=== PATIENT | male | born 1950 | race Two or more races ===

== ENCOUNTER 2024-03-24 11:41 | Emergency (ER) | payer OTHER ==
[~2024-03-24] VITALS: Ht 188 cm; Wt 109.0 kg
[2024-03-24 12:06] LABS: Basophils # (auto) 0.1 10 ^3/uL (0-0.2); Basophils % (auto) 0.9 % (0.0-2.0); Eosinophils # (auto) 0.2 10 ^3/uL (0-0.8); Eosinophils % (auto) 2.1 % (0.0-7.0); Hematocrit 44.1 % (41.0-53.0); Lymphocytes # (auto) 1.9 10 ^3/uL (0.4-5.4); Lymphocytes % (auto) 21.5 % (10.0-50.0); Mean Corpuscular Hemoglobin 30.6 pg (28.0-32.0); Mean Corpuscular Volume 89.9 fL (80.0-100.0); Monocytes # (auto) 0.7 10 ^3/uL (0-1.3); Monocytes % (auto) 7.9 % (0.0-12.0); Neutrophils # (auto) 5.8 10 ^3/uL (1.6-8.6); Neutrophils % (auto) 67.6 % (37.0-80.0); Nucleated Red Blood Cells % 0.2 %; Red Blood Cells 4.91 10^6/uL (4.5-5.90); White Blood Cell 8.6 10^3/uL (4.4-10.8)
[2024-03-24 12:12] VITALS: PULSE 51; RESP 19; O2SAT 95
[2024-03-24] MEDS: ASPirin 81 mg TAB PO ONE (12:12)
[2024-03-24 12:25] LABS: Alanine Aminotransferase 19 U/L (7-40); Albumin 4.3 g/dL (3.2-4.8); Alkaline Phosphatase 105 U/L (46-116); Anion Gap 8 (5-15); Aspartate Aminotransferase 10 U/L (13-40); Bilirubin, Total 0.8 mg/dL (0.2-1.0); Blood Urea Nitrogen 12 mg/dL (9-23); Calcium 9.8 mg/dL (8.7-10.4); Carbon Dioxide 26 mmol/L (20-30); Chloride 107 mmol/L (98-107); Glucose 125 mg/dL (74-106); Potassium 4.2 mmol/L (3.5-5.1); Sodium 141 mmol/L (136-145); Total Protein 6.4 g/dL (5.7-8.2)
[2024-03-24 15:27] LABS: Urine Bacteria None Seen /hpf (None Seen)
[2024-03-24 15:40] LABS: Urine Blood Negative /uL (Negative); Urine Clarity Clear (Clear); Urine Color Light-Yellow (Yellow); Urine Protein, UAD Negative (Negative); Urine Specific Gravity 1.016 (1.001-1.035); Urine Urobilinogen Normal (Negative); Urine WBC 1 /hpf (0 - 3)
[2024-03-24] MEDS ORDERED: MAGNESIUM SULFATE 1GM/100ML 100 ML IV SCH (16:30)
[2024-03-24 16:40] VITALS: BP 116/70; PULSE 81; RESP 19; TEMP 98; O2SAT 98
== END 2024-03-24 17:39 | disposition home or self-care (01) ==
LOC: ER 11:41
DX: R07.89 Other chest pain (principal); E11.9 Type 2 diabetes mellitus without complications; E78.5 Hyperlipidemia, unspecified; I10 Essential (primary) hypertension; F12.90 Cannabis use, unspecified, uncomplicated; Z90.89 Acquired absence of other organs
CPT/HCPCS: 36415; 71046; 80053; 81001; 84484; 85025; 93005

== ENCOUNTER 2024-04-07 09:53 | Day surgery (SDC) | payer OTHER ==
[~2024-04-07] VITALS: Ht 188 cm; Wt 109.0 kg
[~2024-04-07 09:53] MED LIST: ATOR40TA52 PO; FAMO20TA30 PO; GLIP5TAB21 PO; LISI-706 PO; METF-370 PO; METO25TA93 PO
[2024-04-07] MEDS ORDERED: LIDOCAINE 2%HCL (LOCAL ANESTH.) INJ 20ML MDV ONE (10:41)
[2024-04-07] MEDS ORDERED: fentaNYL CITRATE 100 MCG/2 ML VL IV ONE (11:00)
[2024-04-07] MEDS ORDERED: MIDAZOLAM HCL 2MG/2ML 2ml VIAL (1mg/ml) IV ONE (11:00)
[2024-04-07] MEDS ORDERED: MIDAZOLAM HCL 2MG/2ML 2ml VIAL (1mg/ml) ONE (11:44)
== END 2024-04-07 11:01 | disposition home or self-care (01) ==
LOC: CATH 09:53
PROVIDERS: ATTEND Internal Medicine
DX: R00.2 Palpitations (principal); I49.5 Sick sinus syndrome; I49.9 Cardiac arrhythmia, unspecified; Z79.899 Other long term (current) drug therapy
CPT/HCPCS: 33285; C1764; J2250; J3010; 99152

== ENCOUNTER 2024-04-24 12:29 | Inpatient (IN) | payer OTHER ==
[~2024-04-24] VITALS: Ht 188 cm; Wt 240.0 kg
[2024-04-24] VITALS (7 sets, daily range): BP systolic 102–127; BP diastolic 55–75; PULSE 67–136; RESP 11–22; TEMP 97.6–98.3; O2SAT 95–99
[2024-04-24 13:00] LABS: Basophils # (auto) 0.1 10 ^3/uL (0-0.2); Basophils % (auto) 0.8 % (0.0-2.0); Eosinophils # (auto) 0.2 10 ^3/uL (0-0.8); Hematocrit 48.8 % (41.0-53.0); Hemoglobin 17.1 g/dL (13.5-17.5); Lymphocytes # (auto) 2.1 10 ^3/uL (0.4-5.4); Lymphocytes % (auto) 21.2 % (10.0-50.0); Mean Corpuscular Hemoglobin 31.8 pg (28.0-32.0); Mean Corpuscular Hgb Conc. 35.1 g/dL (32.0-36.0); Mean Corpuscular Volume 90.7 fL (80.0-100.0); Monocytes # (auto) 0.7 10 ^3/uL (0-1.3); Nucleated Red Blood Cells % 0.1 %; Platelet Count (auto) 286 10^3/uL (140-450); Red Blood Cells 5.38 10^6/uL (4.5-5.90); Red Cell Distribution Width 13.3 % (11.8-14.3); White Blood Cell 10.1 10^3/uL (4.4-10.8)
[2024-04-24 13:13] LABS: Chloride 105 mmol/L (98-107); Potassium 4.2 mmol/L (3.5-5.1); Sodium 138 mmol/L (136-145)
[2024-04-24 13:14] LABS: Anion Gap 6 (5-15); Carbon Dioxide 27 mmol/L (20-30)
[2024-04-24 13:19] LABS: Glucose 180 mg/dL (74-106)
[2024-04-24 13:20] LABS: BUN/Creatinine Ratio 9.3 (10.0-20.0); Blood Urea Nitrogen 12 mg/dL (9-23)
[2024-04-24] MEDS: AMIODARONE BOLUS KIT 100 ML IV ONE (15:46)
[2024-04-24] MEDS: AMIODARONE 450mg/250ml AE 250 ML IV SCH (15:58)
[2024-04-24] MEDS ORDERED: ONDANSETRON HCL 4 MG/2 ML VIAL IV PRN (16:15)
[2024-04-24] MEDS ORDERED: ACETAMINOPHEN 325 MG TAB PO PRN (16:15)
[2024-04-24] MEDS ORDERED: MORPHINE SULFATE INJ 2 MG/ml SYRG IV PRN ×2 (16:15)
[2024-04-24] MEDS ORDERED: NITROGLYCERIN 0.4 MG SL TAB SL PRN (16:15)
[2024-04-24] MEDS ORDERED: HYDROcodone-ACET 5/325MG TAB PO PRN (16:15)
[2024-04-24] MEDS ORDERED: APIXABAN 5 MG TAB PO SCH (22:00)
[2024-04-24] MEDS: ENOXAPARIN SOD 100 MG/1 ML SYRINGE SC SCH (22:00)
[2024-04-24] MEDS: metFORMIN HYDROCHLORIDE 500 MG TAB PO SCH (22:01)
[2024-04-24] MEDS: ATORVASTATIN 20 MG TAB PO SCH (22:02)
[2024-04-25] VITALS (18 sets, daily range): BP systolic 96–133; BP diastolic 58–90; PULSE 60–77; RESP 9–17; TEMP 97.5–97.9; O2SAT 93–98
[2024-04-25] MEDS: FAMOTIDINE 20 MG TAB PO SCH (09:39)
[2024-04-25] MEDS: METOPROLOL SUCCINATE XL 50 MG TAB PO SCH (09:40)
[2024-04-25] MEDS: glipiZIDE 5 MG TAB PO SCH (09:44)
[2024-04-25] MEDS: APIXABAN 5 MG TAB PO ONE (14:18)
[2024-04-25] MEDS ORDERED: METO25TA93 PO (14:26)
[2024-04-25] MEDS ORDERED: APIX5TAB PO (14:26)
[2024-04-25] MEDS ORDERED: APIXABAN 5 MG TAB PO SCH (22:00)
== END 2024-04-25 18:22 | disposition home or self-care (01) | DRG 310 ==
LOC: ER 12:29 → TELE 16:17 → DOU IN ICU 18:27
PROVIDERS: ADMIT Internal Medicine; ATTEND Internal Medicine
DX: I48.20 Chronic atrial fibrillation, unspecified (principal); I10 Essential (primary) hypertension; E11.9 Type 2 diabetes mellitus without complications; E78.5 Hyperlipidemia, unspecified; Z87.891 Personal history of nicotine dependence; Z79.84 Long term (current) use of oral hypoglycemic drugs; Z79.01 Long term (current) use of anticoagulants
CPT/HCPCS: 36415; 71045; 80048; 82962; 84484; 85025; 87081; 93005; 96365; 99291; G0378